=== PATIENT | male | born 1995 | race American Indian/Alaskan Native ===

== ENCOUNTER 2019-05-04 00:19 | Emergency (ER) | payer SELFPAY ==
[2019-05-04] MEDS ORDERED: TYLENOL PO ONE (01:29)
--- NOTE | 2019-05-04 02:26 | XRay Report ---
PROCEDURE: XR FOOT 3+V RT TECHNIQUE: foot radiographs, AP, lateral, and oblique views. HISTORY: foot pain and swelling COMPARISONS: None . FINDINGS: Fracture (s) and/or Dislocation(s): None . Alignment: Normal . Joint space(s): Normal . Soft tissues: Normal . Bone mineralization: Normal . Foreign bodies: None . Calcaneal spurring: None . IMPRESSION: Normal Examination . This document is electronically signed by Max Madrid MD., May 04 2019 02:24:17 AM ET
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
== END 2019-05-04 04:37 | disposition home or self-care (01) ==
LOC: ED 00:19
DX: S93.601A Unspecified sprain of right foot, initial encounter (principal); S90.31XA Contusion of right foot, initial encounter; F17.200 Nicotine dependence, unspecified, uncomplicated; W22.8XXA Striking against or struck by other objects, initial encounter; Y93.89 Activity, other specified; Y92.89 Other specified places as the place of occurrence of the external cause; Y99.8 Other external cause status

== ENCOUNTER 2019-07-08 13:04 | Emergency (ER) | payer SELFPAY ==
--- NOTE | 2019-07-08 13:15 | Emergency Department Report ---
Blank Doc - Documentation Documentation: This is a 24-year-old male that presents with bilateral flank pains. Denies any injuries. This initial assessment/diagnostic orders/clinical plan/treatment(s) is/are subject to change based on patient's health status, clinical progression and re- assessment by fellow clinical providers in the ED. Further treatment and workup at subsequent clinical providers discretion. Patient/guardians urged not to elope from the ED as their condition may be serious if not clinically assessed and managed. Initial orders include: 1- Patient sent to [facility] for further evaluation and treatment 2- UA
[2019-07-08 13:17] VITALS: BP 130/74
[2019-07-08 14:27] LABS: Bilirubin,Urine NEG (Negative); Blood,Urine SM (Negative); Color,Urine Yellow (Yellow); Mucus,Urine FEW /HPF; Protein,Urine <15 mg/dL mg/dL (Negative); Urobilinogen,Urine < 2.0 mg/dL (<2.0)
--- NOTE | 2019-07-08 18:24 | Emergency Department Report ---
Blank Doc - Documentation Documentation: pt eloped from the ED prior to being seen. was not evaluated by me.
== END 2019-07-08 17:00 ==
LOC: ED 13:04
DX: M79.604 Pain in right leg (principal); Z53.21 Procedure and treatment not carried out due to patient leaving prior to being seen by health care provider
CPT/HCPCS: 81001

== ENCOUNTER 2020-12-28 21:08 | Emergency (ER) | payer SELFPAY ==
[2020-12-28 21:45] VITALS: BP 140/86
--- NOTE | 2020-12-28 22:01 | Emergency Department Report ---
Blank Doc - Documentation Documentation: 25-year-old male that presents with right lateral rib/chest pain intermittently the past 2 to 3 weeks. 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 Denies any injuries or trauma. Denies any shortness of breath. Stated pain is worse with movement. Denies any cough or other URI symptoms. 1- This initial assessment/diagnostic orders/clinical plan/ treatment(s) is/are subject to change based on pt's health status, clinical progression and re- assessment by fellow clinical providers in the ED. Further treatment and workup at subsequent clinical provers discretion. Patient/guardians urged not to elope from ED as their condition may be serious if not clinically assessed and managed. 2-chest x-ray
--- NOTE | 2020-12-28 23:12 | XRay Report ---
CHEST 2 VIEWS INDICATION / CLINICAL INFORMATION: Chest pain on the right and back pain for 2 weeks. COMPARISON: None available. FINDINGS: SUPPORT DEVICES: None. HEART / MEDIASTINUM: The heart size and pulmonary vasculature are normal. The aorta is normal in jaylin nithya. LUNGS / PLEURA: No significant pulmonary or pleural abnormality. No pneumothorax. ADDITIONAL FINDINGS: No significant additional findings. IMPRESSION: No acute findings. Signer Name: Max Gaspar MD Signed: 12/28/2020 11:08 PM Workstation Name: [id number]
--- NOTE | 2020-12-29 01:09 | Emergency Department Report ---
ED General Adult HPI - General Chief complaint: Chest Pain Stated complaint: RIGHT LUNG AND BACK PAIN Time Seen by Provider: 12/28/20 22:01 Source: patient Mode of arrival: Ambulatory Limitations: No Limitations - History of Present Illness Initial comments: Patient 25-year-old male who presents for right lateral chest wall pain for 1/2 weeks. Patient denies fall injury or trauma no no. Pain described as 7/10 achy sharp exacerbated by movement. Pain is relieved by rest and offloading. There is been no fever or chills, no nausea vomiting, last p.o. intake this evening. - Related Data Previous Rx's Medication Instructions Recorded Last Taken Type Clotrimazole/Betamethasone Dip 15 gm TP BID #1 appful 09/12/16 Unknown Rx [Lotrisone Cream] Terbinafine (Nf) [LamiSIL] 250 mg PO QDAY #14 tablet 09/12/16 Unknown Rx Cyclobenzaprine [Flexeril] 10 mg PO Q8H PRN #15 tablet 05/04/19 Unknown Rx Ibuprofen [Motrin] 600 mg PO Q8H PRN #24 tablet 05/04/19 Unknown Rx Naproxen Sodium [Naproxen Sodium 550 mg PO BID PRN #30 tablet 12/29/20 Unknown Rx 550mg] Allergies Allergy/AdvReac Type Severity Reaction Status Date / Time No Known Allergies Allergy Verified 07/08/19 13:07 ED Review of Systems ROS: Stated complaint: RIGHT LUNG AND BACK PAIN Other details as noted in HPI Constitutional: denies: chills, fever Eyes: denies: eye pain, eye discharge, vision change ENT: denies: ear pain, throat pain Respiratory: denies: cough, shortness of breath, wheezing Cardiovascular: chest pain (right lateral chest wall pain ). denies: palpitations Endocrine: no symptoms reported Gastrointestinal: denies: abdominal pain, nausea, vomiting, diarrhea Genitourinary: denies: urgency, dysuria Musculoskeletal: denies: back pain, joint swelling, arthralgia Skin: denies: rash, lesions Neurological: denies: headache, weakness, paresthesias Psychiatric: denies: anxiety, depression Hematological/Lymphatic: denies: easy bleeding, easy bruising ED Past Medical Hx - Past Medical History Previous Medical History?: Yes Additional medical history: Pneumonia - Surgical History Past Surgical History?: No - Social History Smoking Status: Never Smoker Substance Use Type: Marijuana - Medications Home Medications: Home Medications Medication Instructions Recorded Confirmed Last Taken Type Clotrimazole/Betamethasone Dip 15 gm TP BID #1 appful 09/12/16 Unknown Rx [Lotrisone Cream] Terbinafine (Nf) [LamiSIL] 250 mg PO QDAY #14 tablet 09/12/16 Unknown Rx Cyclobenzaprine [Flexeril] 10 mg PO Q8H PRN #15 tablet 05/04/19 Unknown Rx Ibuprofen [Motrin] 600 mg PO Q8H PRN #24 tablet 05/04/19 Unknown Rx Naproxen Sodium [Naproxen Sodium 550 mg PO BID PRN #30 tablet 12/29/20 Unknown Rx 550mg] ED Physical Exam - General Limitations: No Limitations General appearance: alert, in no apparent distress - Head Head exam: Present: atraumatic, normocephalic - Eye Eye exam: Present: normal appearance, PERRL, EOMI Pupils: Present: normal accommodation - ENT ENT exam: Present: normal exam, mucous membranes moist - Neck Neck exam: Present: normal inspection, tenderness, full ROM. Absent: meningismus - Respiratory Respiratory exam: Present: normal lung sounds bilaterally, rhonchi, stridor, chest wall tenderness. Absent: respiratory distress, wheezes, rales - Cardiovascular Cardiovascular Exam: Present: regular rate, normal rhythm, normal heart sounds. Absent: systolic murmur, diastolic murmur, rubs, gallop - GI/Abdominal GI/Abdominal exam: Present: soft, normal bowel sounds. Absent: distended, tenderness, guarding, rebound, rigid, bruit, hernia - Rectal Rectal exam: Present: deferred - Extremities Exam Extremities exam: Present: normal inspection, full ROM, tenderness - Back Exam Back exam: Present: normal inspection. Absent: full ROM, tenderness, CVA tenderness (R), CVA tenderness (L), paraspinal tenderness - Neurological Exam Neurological exam: Present: alert, oriented X3, CN II-XII intact, normal gait, reflexes normal - Psychiatric Psychiatric exam: Present: normal affect, normal mood - Skin Skin exam: Present: warm, dry, intact, normal color. Absent: rash ED Course Vital Signs 12/28/20 21:44 Temperature 98.3 F Pulse Rate 76 Respiratory 18 Rate Blood Pressure 140/86 O2 Sat by Pulse 100 Oximetry ED Medical Decision Making - Radiology Data Radiology results: report reviewed, image reviewed - Medical Decision Making , cxr: no opacities, lungs soud clearbilat no rhonchi , pain is reproducible to deep palpation will dc to home in [place] conditing. pt states symptoms improved. Critical Care Time: Yes Critical care attestation.: If time is entered above; I have spent that time in minutes in the direct care of this critically ill patient, excluding procedure time. ED Disposition Clinical Impression: Chest wall pain Disposition: DC-01 TO HOME OR SELFCARE Is pt being admited?: No Does the pt Need Aspirin: No Condition: Critical Instructions: Chest Pain (ED), Nonspecific Chest Pain, Adult, Chest Wall Pain Prescriptions: Naproxen Sodium [Naproxen Sodium 550mg] 550 mg PO BID PRN #30 tablet PRN Reason: pain Referrals: ADRIAN AVERY MD [Staff Physician] - 3-5 Days Forms: Work/School Release Form(ED)
== END 2020-12-29 01:42 | disposition home or self-care (01) ==
LOC: ED 21:08
DX: R07.89 Other chest pain (principal); F12.10 Cannabis abuse, uncomplicated; Z79.899 Other long term (current) drug therapy
CPT/HCPCS: 71046; 99283

== ENCOUNTER 2022-05-23 22:04 | Emergency (ER) | payer SELFPAY ==
[2022-05-23 22:09] VITALS: BP 148/85
== END 2022-05-24 05:37 | disposition left against medical advice (07) ==
LOC: ED 22:04
DX: M54.9 Dorsalgia, unspecified (principal); Z53.21 Procedure and treatment not carried out due to patient leaving prior to being seen by health care provider